=== PATIENT | female | born 1985 | race African-American/Black ===

== ENCOUNTER 2017-03-03 10:18 | Emergency (ER) | payer MEDICAID ==
[2017-03-03 10:24] VITALS: BP 154/91
[2017-03-03] MEDS ORDERED: CLINDAMYCIN HCL 150 MG CAPSULE PO ONE (10:37)
[2017-03-03] MEDS ORDERED: DEXAMETHASONE 4 MG TABLET PO ONE (10:37)
[2017-03-03] MEDS ORDERED: OXYCODONE-ACETAMINOPHEN 5-325 MG TABLET PO ONE (10:37)
--- NOTE | 2017-03-03 10:40 | ER Document Report ---
HPI - HPI Patient complains to provider of: facial swelling Onset: This morning Onset/Duration: Gradual Quality of pain: Achy Pain Level: 3 Context: Patient complains of dental pain that started yesterday. Patient woke up today and her right cheek was swollen. Patient denies any difficulty breathing or swallowing. Patient denies any fever. Associated Symptoms: Other - toothache. denies: Fever Exacerbated by: Denies Relieved by: Denies Similar symptoms previously: Yes Recently seen / treated by doctor: No - ROS ROS below otherwise negative: Yes Systems Reviewed and Negative: Yes All other systems reviewed and negative - EENT Notes: dental pain - RESPIRATORY Respiratory: DENIES: Trouble Breathing - GASTROINTESTINAL Gastrointestinal: DENIES: Nausea - MUSCULOSKELETAL Musculoskeletal: DENIES: Neck Pain - DERM Skin Color: Normal Skin Problems: None Past Medical History - General Information source: Patient - Social History Smoking Status: Current Every Day Smoker Frequency of alcohol use: None Drug Abuse: None Occupation: none Lives with: Family Family History: Reviewed & Not Pertinent - Medical History Medical History: Negative Renal/ Medical History: Denies: Hx Peritoneal Dialysis Past Surgical History: Reports: Hx Section Vertical Provider Document - CONSTITUTIONAL Agree With Documented VS: Yes Exam Limitations: No Limitations General Appearance: WD/WN, No Apparent Distress - INFECTION CONTROL TRAVEL OUTSIDE OF THE [place] IN LAST 30 DAYS: No - HEENT HEENT: Atraumatic, Normocephalic. negative: Pharyngeal Exudate, Pharyngeal Tenderness, Pharyngeal Erythema, Tympanic Membrane Red, Tympanic Membrane Bulging Mouth Diagram: 1 - dental caries, tender, indurated gingiva, no fluctuance, no trismus - NECK Neck: Normal Inspection, Supple. negative: Lymphadenopathy-Left, Lymphadenopathy-Right - RESPIRATORY Respiratory: Breath Sounds Normal, No Respiratory Distress O2 Sat by Pulse Oximetry: 96 - CARDIOVASCULAR Cardiovascular: Regular Rate, Regular Rhythm - MUSCULOSKELETAL/EXTREMETIES Musculoskeletal/Extremeties: MAEW - NEURO Level of Consciousness: Awake, Alert, Appropriate Motor/Sensory: No Motor Deficit - DERM Integumentary: Warm, Dry, No Rash Course - Re-evaluation Re-evalutation: 03/03/17 10:38 The patient has been informed that they may have pre-hypertension or hypertension based on a blood pressure reading in the emergency department. I recommend that patient call the primary care provider listed on their discharge instructions or a physician of their choice by this week to arrange follow-up for further evaluation of possible pre-hypertension her hypertension. - Vital Signs Vital signs: Temp Pulse Resp BP Pulse Ox 98.2 F 64 18 154/91 H 96 03/03/17 10:22 03/03/17 10:22 03/03/17 10:22 03/03/17 10:22 03/03/17 10:22 Discharge - Discharge Clinical Impression: Elevated blood pressure reading, Infected dental caries Condition: Stable Disposition: HOME, SELF-CARE Instructions: Clindamycin ([facility]), Oral Narcotic Medication ([facility]), Toothache ([facility] ), Dentist, Dental Infection or Abscess ([facility]) Additional Instructions: Return immediately for any new or worsening symptoms Followup with your primary care provider, call tomorrow to make a followup appointment and to have your blood pressure rechecked Follow-up with a dental care provider Prescriptions: Clindamycin HCl [Cleocin Hcl] 300 mg PO QID #28 capsule Oxycodone HCl/Acetaminophen [Percocet 5-325 mg Tablet] 1 tab PO ASDIR PRN #15 tablet PRN Reason: Referrals: [facility] [Provider Group] - Follow up as needed [facility] [Provider Group] - Follow up as needed
== END 2017-03-03 10:55 | disposition home or self-care (01) ==
LOC: ER 10:18
DX: K02.9 Dental caries, unspecified (principal); R03.0 Elevated blood-pressure reading, without diagnosis of hypertension; R22.0 Localized swelling, mass and lump, head; F17.200 Nicotine dependence, unspecified, uncomplicated
CPT/HCPCS: 99282; J3490 ×2

== ENCOUNTER 2017-03-05 15:36 | Emergency (ER) | payer MEDICAID ==
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
[2017-03-05 17:47] VITALS: BP 142/82
== END 2017-03-05 17:59 | disposition home or self-care (01) ==
LOC: ER 15:36
DX: K04.7 Periapical abscess without sinus (principal)
CPT/HCPCS: 99282

== ENCOUNTER 2017-03-16 12:08 | Emergency (ER) | payer MEDICAID ==
[2017-03-16 12:13] VITALS: BP 149/81
[2017-03-16] MEDS ORDERED: LIDOCAINE 2% VISCOUS SOLN 20 ML UDCUP PO ONE (12:37)
--- NOTE | 2017-03-16 12:38 | ER Document Report ---
ED Oral Problem - General Chief Complaint: Toothache Stated Complaint: TOOTHACHE Time Seen by Provider: 03/16/17 12:29 Mode of Arrival: Ambulatory Information source: Patient Notes: 31-year-old female presents to ED for dental abscess. States she was seen about a month ago and started on clindamycin but she cannot get into see the dentist until the end of the month. TRAVEL OUTSIDE OF THE [place] IN LAST 30 DAYS: No - HPI Patient complains to provider of: Toothache Onset: Other Onset: Gradual Quality of pain: Sharp Severity: Severe Pain Level: 5 Associated symptoms: Toothache Worsened by: Cold Relieved by: Nothing Similar symptoms previously: Yes Recently seen / treated by doctor/dentist: Yes - Related Data Allergies/Adverse Reactions: amoxicillin Allergy (Verified 03/16/17 12:10) Penicillins Allergy (Verified 03/16/17 12:10) Past Medical History - General Information source: Patient - Social History Smoking Status: Never Smoker Cigarette use (# per day): No Chew tobacco use (# tins/day): No Smoking Education Provided: No Frequency of alcohol use: None Drug Abuse: None Lives with: Family Family History: Reviewed & Not Pertinent Patient has suicidal ideation: No Patient has homicidal ideation: No - Past Medical History Cardiac Medical History: Reports: None Pulmonary Medical History: Reports: None EENT Medical History: Reports: None Neurological Medical History: Reports: None Endocrine Medical History: Reports: None Renal/ Medical History: Reports: None Malignancy Medical History: Reports: None GI Medical History: Reports: None Musculoskeltal Medical History: Reports None Skin Medical History: Reports None Psychiatric Medical History: Reports: None Traumatic Medical History: Reports: None Infectious Medical History: Reports: None Past Surgical History: Reports: Hx Section Review of Systems - Review of Systems Constitutional: No symptoms reported EENT: Mouth pain, Mouth swelling, Dental problem Cardiovascular: No symptoms reported Respiratory: No symptoms reported Gastrointestinal: No symptoms reported Genitourinary: No symptoms reported Female Genitourinary: No symptoms reported Musculoskeletal: No symptoms reported Skin: No symptoms reported Hematologic/Lymphatic: No symptoms reported Neurological/Psychological: No symptoms reported -: Yes All other systems reviewed and negative Physical Exam - Vital signs Vitals: Temp Pulse Resp BP Pulse Ox 98.4 F 74 16 149/81 H 100 03/16/17 12:10 03/16/17 12:10 03/16/17 12:10 03/16/17 12:10 03/16/17 12:10 Interpretation: Normal - General General appearance: Appears well, Alert - HEENT Head: Normocephalic, Atraumatic Eyes: Normal Pupils: PERRL Ears: Normal External canal: Normal Tympanic membrane: Normal Sinus: Normal Nasal: Normal Mouth/Lips: Caries Mucous membranes: Normal Teeth diagram: 1 - Abscess, I&D with 18-gauge needle with a large amount of purulent drainage returned. Clindamycin prescription extended. Patient encouraged to gargle salt and soda solution and follow-up with dentist - Respiratory Respiratory status: No respiratory distress Chest status: Nontender Breath sounds: Normal Chest palpation: Normal - Cardiovascular Rhythm: Regular Heart sounds: Normal auscultation Murmur: No - Abdominal Inspection: Normal Distension: No distension Bowel sounds: Normal Tenderness: Nontender Organomegaly: No organomegaly - Back Back: Normal, Nontender - Extremities General upper extremity: Normal inspection, Nontender, Normal color, Normal ROM , Normal temperature General lower extremity: Normal inspection, Nontender, Normal color, Normal ROM , Normal temperature, Normal weight bearing. No: Rosalinda's sign - Neurological Neuro grossly intact: Yes Cognition: Normal Orientation: AAOx4 [place] Coma Scale Eye Opening: Spontaneous [place] Coma Scale Verbal: Oriented Marisol Coma Scale Motor: Obeys Commands [place] Coma Scale Total: 15 Speech: Normal Motor strength normal: LUE, RUE, LLE, RLE Sensory: Normal - Psychological Associated symptoms: Normal affect, Normal mood - Skin Skin Temperature: Warm Skin Moisture: Dry Skin Color: Normal Course - Vital Signs Vital signs: Temp Pulse Resp BP Pulse Ox 98.4 F 74 16 149/81 H 100 03/16/17 12:10 03/16/17 12:10 03/16/17 12:10 03/16/17 12:10 03/16/17 12:10 Procedures - Incision and Drainage Right upper gum Time completed: 13:22 Type: Simple Anesthetic type: Other mL's of anesthetic: 2 Blade size: Other - 18-gauge needle I&D procedure: Other Incision Method: Incision made with needle Amount/type of drainage: Large amount of purulent drainage Discharge - Discharge Clinical Impression: Dental abscess Condition: Stable Disposition: HOME, SELF-CARE Additional Instructions: TOOTHACHE: Your pain is due to dental decay. The tooth must be repaired in order for you to feel better. You will, therefore, be referred to a dentist. We do not have dentists on the staff at [facility]. Severe swelling or drainage around a tooth usually means a dental abscess. This also requires evaluation and treatment by the dentist, but antibiotics may be prescribed while awaiting dental treatment. You should be rechecked immediately if you develop major swelling of the face, increasing pain, a lump in the jaw or gums, headache, difficulty swallowing, or fever. CLINDAMYCIN: Please complete your prescription for the antibiotic clindamycin. It is often prescribed for infections in the mouth, such as dental infections or abscesses, and for skin infections due to MRSA. It's important that you take all the medication, unless instructed otherwise by your physician. Failure to complete the entire course can result in relapse of your condition. Common side effects of antibiotics include nausea, intestinal cramping, or diarrhea. Women may develop vaginal yeast infections, and babies can get yeast (thrush) in the mouth following the use of antibiotics. Contact your physician if you develop significant side effects from this medication. Allergy to this antibiotic can result in hives, wheezing, faintness, or itching. If symptoms of allergy occur, stop the medication and call the doctor. Call your dentist in the morning and see if you can get scheduled sooner than the 24th for care of this tooth. I will go with some warm salt and soda solution every 3-4 hours. 1 quart of water 1 tablespoon of salt 1 teaspoon of baking soda Mixed 3 ingredients together and boil for 1 minute Placed in a covered quart jar Use 1/2 ounce of cold solution to gargle 3 times a day You can warm the solution of a little bit when you get ready to use it. You do not want hot solution. You can use your lidocaine gel to the area to help numb it every 4 hours as needed for discomfort. FOLLOW-UP CARE: You have been referred for follow-up care to the dentists listed below. Call the dentists office for an appointment as you were instructed or within the next two days. If you experience worsening or a significant change in your symptoms, notify the physician immediately or return to the Emergency Department at any time for re-evaluation. [facility] [address] [place], [place] Paul mornings, by appointment [facility] [address] [place] [address] [facility] [address] [facility] [address] [facility] [address] [facility] [email or web address] [facility] [address] [place] [address] Monday- 8:00am to 5:00 pm Will see patients from other [facility]. Charges based on income and family size and accepts Medicare, Medicaid, and Insurances Will pull molars [facility] [id number] Hours of Operation 8:00 am - 4:30 pm weekdays The following dental offices accept Medicaid: [facility] Dr. Gutierrez Dr. Sullivan Dr. Ryan Dr. Bella Michael Jensen L[place], and Aaron oral surgery Dr. Alex ([place]) Dr. Velazquez ([place]) [facility] Drs. Lopez and Noman ([place]) Dr. Landers ([place]) [facility] Dr. Otto ([place]) Drs. Carmona and ([place]) Medicaid Care Line Prescriptions: Clindamycin HCl 300 mg PO Q6 10 Days Forms: Elevated Blood Pressure
== END 2017-03-16 13:15 | disposition home or self-care (01) ==
LOC: ER 12:08
PROC: 0C95XZZ Drainage of Upper Gingiva, External Approach (ICD-10-PCS; principal; 2017-03-16)
DX: K08.89 Other specified disorders of teeth and supporting structures (principal); K04.7 Periapical abscess without sinus
CPT/HCPCS: 99282; 41800; J3490